=== PATIENT | male | born 1990 | race Caucasian/White ===

== ENCOUNTER 2016-06-15 08:56 | Observation (INO) | payer SELFPAY ==
[~2016-06-15] VITALS: Ht 188 cm; Wt 69.9 kg
[~2016-06-15 08:56] MED LIST: ASPI1TAB30 PO
[2016-06-15 09:52] LABS: DAU SCREEN DISCLAIMER
[2016-06-15 09:56] LABS: HEMOGLOBIN 15.3 g/dL (13.7-18.0)
[2016-06-15 10:04] LABS: BLOOD UREA NITROGEN 8 mg/dL (7-18)
[2016-06-15] MEDS ORDERED: BACITRACIN ZINC OINT 500U/GM, 0.9 GM ONE ×2 (10:04→10:18)
[2016-06-15 10:05] LABS: ACETAMINOPHEN < 2 mcg/mL (10-30)
[2016-06-15] MEDS ORDERED: DOCUSATE 100 MG CAPSULE PO PRN (15:00)
[2016-06-15] MEDS ORDERED: POLYETHYLENE GLYCOL 17 GM PACKET PO PRN (15:00)
[2016-06-15] MEDS ORDERED: FOLIC ACID 5 MG/ML IM ONE (15:00)
[2016-06-15] MEDS ORDERED: ASA/APAP/ CAFFEINE TABLET PO PRN (15:00)
[2016-06-15] MEDS ORDERED: ACETAMINOPHEN 325 MG TABLET PO PRN (15:00)
[2016-06-15] MEDS ORDERED: LORazepam 0.5MG TABLET PO PRN (15:00)
[2016-06-15] MEDS ORDERED: LORazepam 1MG TABLET PO PRN ×2 (15:00)
[2016-06-15] MEDS: ENOXAPARIN 40 MG/0.4 ML SQ SCH (15:00)
[2016-06-15] MEDS ORDERED: BISACODYL 10 MG SUPP PR PRN (15:00)
[2016-06-15] MEDS: MAGNESIUM CHLORIDE 64 MG TABLET.DR PO SCH ×2 (16:00→21:45)
[2016-06-15 17:39] VITALS: BP 127/81
[2016-06-15] MEDS ORDERED: FOLIC ACID 1 MG TABLET PO ONE (18:30)
[2016-06-15] MEDS: LORazepam 1MG TABLET PO PRN ×2 (18:42→21:45)
[2016-06-15 19:44] VITALS: BP 110/68
[2016-06-16] MEDS: MULTIVITAMINS/MINERALS TABLET PO SCH (08:18)
[2016-06-16] MEDS: NICOTINE 21 MG/24 HR PATCH.TD24 TD SCH ×2 (08:18→19:48)
[2016-06-16] MEDS: MAGNESIUM CHLORIDE 64 MG TABLET.DR PO SCH ×3 (08:18→19:47)
[2016-06-16 08:30] VITALS: BP 129/69
[2016-06-16] MEDS: ENOXAPARIN 40 MG/0.4 ML SQ SCH (15:00)
[2016-06-16 19:48] VITALS: BP 117/72
[2016-06-17] MEDS: MULTIVITAMINS/MINERALS TABLET PO SCH (08:13)
[2016-06-17] MEDS: MAGNESIUM CHLORIDE 64 MG TABLET.DR PO SCH ×3 (08:14→22:53)
[2016-06-17 08:31] VITALS: BP 115/72
[2016-06-17] MEDS: ENOXAPARIN 40 MG/0.4 ML SQ SCH (15:00)
[2016-06-17 19:27] VITALS: BP 115/82
[2016-06-17] MEDS: TRAZODONE 50MG TABLET PO SCH (22:53)
[2016-06-17] MEDS: NICOTINE 21 MG/24 HR PATCH.TD24 TD SCH (22:54)
[2016-06-18 07:37] VITALS: BP 137/88
[2016-06-18] MEDS: MULTIVITAMINS/MINERALS TABLET PO SCH (09:47)
[2016-06-18] MEDS: MAGNESIUM CHLORIDE 64 MG TABLET.DR PO SCH (09:47)
[2016-06-18] MEDS: ENOXAPARIN 40 MG/0.4 ML SQ SCH (15:00)
[2016-06-18 20:05] VITALS: BP 125/86
[2016-06-18] MEDS: NICOTINE 21 MG/24 HR PATCH.TD24 TD SCH (23:50)
[2016-06-19] MEDS: TRAZODONE 50MG TABLET PO SCH ×2 (02:47→21:35)
[2016-06-19 08:27] VITALS: BP 125/66
[2016-06-19] MEDS: MULTIVITAMINS/MINERALS TABLET PO SCH (09:00)
[2016-06-19] MEDS: ENOXAPARIN 40 MG/0.4 ML SQ SCH (15:00)
[2016-06-19 19:52] VITALS: BP 112/99
[2016-06-19] MEDS: LORazepam 1MG TABLET PO PRN (22:12)
[2016-06-20] MEDS: MULTIVITAMINS/MINERALS TABLET PO SCH (08:34)
[2016-06-20] MEDS: NICOTINE 21 MG/24 HR PATCH.TD24 TD SCH (08:34)
[2016-06-20 09:02] VITALS: BP 107/64
[2016-06-20] MEDS: ENOXAPARIN 40 MG/0.4 ML SQ SCH (15:00)
== END 2016-06-20 16:36 | disposition home or self-care (01) ==
LOC: ED 10:19 → EDIP 14:01 → 3E 15:50
PROVIDERS: ADMIT Hospitalist; ATTEND Family Medicine
DX: R45.851 Suicidal ideations (principal); F32.9 Major depressive disorder, single episode, unspecified; F12.90 Cannabis use, unspecified, uncomplicated; J45.909 Unspecified asthma, uncomplicated; E88.01 Alpha-1-antitrypsin deficiency; G43.909 Migraine, unspecified, not intractable, without status migrainosus; F17.210 Nicotine dependence, cigarettes, uncomplicated; F10.220 Alcohol dependence with intoxication, uncomplicated; Z87.2 Personal history of diseases of the skin and subcutaneous tissue
CPT/HCPCS: 36415; 80048; 80307; 80329; 82040; 85025; 96372; 99285; G0378; J1650; G0480

== ENCOUNTER 2020-04-03 22:36 | Emergency (ER) | payer MEDICAID ==
[~2020-04-03] VITALS: Ht 188 cm; Wt 68.5 kg
[~2020-04-03 22:36] MED LIST changes: -ASPI1TAB30 PO; +ASPI1TAB31 PO
[2020-04-03 23:11] LABS: BASOPHILS % (AUTO) 1 % (0-1); EOSINOPHILS % (AUTO) 2 % (1-7); LYMPHOCYTES % (AUTO) 30 % (22-44); MEAN CORPUSCULAR HEMOGLOBIN 28.2 pg (27.5-34.5); MEAN CORPUSCULAR HGB CONC 33.7 g/dL (33.2-36.2); MEAN PLATELET VOLUME 6.9 fL (7.4-10.4); MONOCYTES % (AUTO) 9 % (2-9); NEUTROPHILS % (AUTO) 58 % (42-75); PLATELET COUNT 423 x10^3/uL (130-400); RED BLOOD COUNT 4.79 x10^6/uL (4.38-5.82); RED CELL DISTRIBUTION WIDTH 14.1 % (9.4-14.8)
[2020-04-03 23:12] LABS: MD NO
--- NOTE | 2020-04-03 23:15 | NUR ---
PETER reported this patient was NOT a legal hold. paperwork sent with PETER Núñez was obtained from PETER and I asked if this was legal hold paperwork and EMS stated he was told that he was not
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
[2020-04-03 23:20] LABS: ALANINE AMINOTRANSFERASE 41 U/L (12-78); ALBUMIN 3.9 g/dL (3.4-5.0); ANION GAP 5 mmol/L (5-15); CALCIUM 8.9 mg/dL (8.5-10.1); CHLORIDE 110 mmol/L (98-107); SALICYLATE LEVEL 2.5 mg/dL (2.8-20.0)
[2020-04-03 23:22] LABS: ALKALINE PHOSPHATASE 157 U/L (45-117); BILIRUBIN,TOTAL 0.3 mg/dL (0.2-1.0); TOTAL PROTEIN 7.1 g/dL (6.4-8.2)
[2020-04-03 23:38] LABS: AMPHETAMINE SCREEN, URINE Positive (Negative); BARBITURATE SCREEN, URINE Negative (Negative); BENZODIAZEPINE SCREEN, URINE Negative (Negative); CANNABINOID SCREEN, URINE Positive (Negative); COCAINE SCREEN, URINE Negative (Negative); METHADONE SCREEN, URINE Negative (Negative); OPIATE SCREEN, URINE Negative (Negative)
--- NOTE | 2020-04-04 00:06 | NUR ---
report given to vera for lunch relief
--- NOTE | 2020-04-04 01:28 | NUR ---
patient resting in bed in NAD with eyes closed. no further needs at this time. was just notified by PA that this patient was a legal hold. 1:1 being placed
--- NOTE | 2020-04-04 02:21 | NUR ---
patient transferred to safety room
--- NOTE | 2020-04-04 02:45 | NUR ---
tp: packet fax[facility] and [facility].
--- NOTE | 2020-04-04 03:12 | NUR ---
[facility] cannot accept this referral due to inappropriate insurance coverage.
--- NOTE | 2020-04-04 03:19 | NUR ---
TASK RN: PT ACCEPTED BY [facility]. PT CAN ARRIVE TO FACILITY AT 0[address] THIS [address]ORN[address]EPT[address] EVERETT VASQUEZ
--- NOTE | 2020-04-04 04:14 | NUR ---
patient resting in bed in NAD with eyes closed. no further needs at this time
--- NOTE | 2020-04-04 05:10 | NUR ---
patient resting in bed with eyes closed. in NAD. safety maintained. will continue to monitor.
--- NOTE | 2020-04-04 05:50 | NUR ---
report given to Tennille BOBBY at [facility].
[2020-04-04] MEDS ORDERED: CYCL5TAB PO (05:55)
--- NOTE | 2020-04-04 06:10 | NUR ---
patient resting in bed in NAD. lights dimmed per preference and to promote sleep. safety maintained.
--- NOTE | 2020-04-04 06:47 | NUR ---
report given to Trisha BOBBY
[2020-04-04 07:28] VITALS: BP 104/70
--- NOTE | 2020-04-04 08:10 | NUR ---
Report to PETER, pt belongings given to [facility]. PT transported with paperwork to [facility].
== END 2020-04-04 08:15 ==
LOC: ED 23:30
DX: R45.851 Suicidal ideations (principal); R25.9 Unspecified abnormal involuntary movements; F15.129 Other stimulant abuse with intoxication, unspecified; F32.9 Major depressive disorder, single episode, unspecified; Z59.0 Homelessness
CPT/HCPCS: 36415; 80053; 80299; 80307; 80320; 80329; 85025; 99285; G0480